=== PATIENT | male | born 1985 | race African-American/Black ===

== ENCOUNTER 2020-11-19 15:02 | Emergency (ER) | payer OTHER, SELFPAY ==
[2020-11-19 15:10] VITALS: BP 127/90; PULSE 71; RESP 17; TEMP 36.4; O2SAT 100
[2020-11-19] MEDS: IBUPROFEN 600 MG TABLET PO (16:16)
[2020-11-19] MEDS: traMADol HCL (*CRX) 50 MG TABLET PO (16:16)
[2020-11-19] MEDS: AMOXICILLIN/CLAVULANATE K 875-125 MG TAB 1 TABLET PO (16:16)
--- NOTE | 2020-11-19 16:22 | ED.DENTAL ---
HPI - Dental/Oral General Chief complaint: Dental/Oral Stated complaint: teeth problems Time Seen by Provider: 11/19/20 15:19 Source: patient and RN notes reviewed Mode of arrival: ambulatory Limitations: no limitations History of Present Illness HPI Narrative: This is a 35 year old male who presents for evaluation of right lower dental pain. He reports he developed pain 2-3 days. PAin is worse with eating. He also notes gum swelling but denies drainage. He has been taking aleve for his pain. Denies difficulty breathing. Related Data Allergies Allergy/AdvReac Type Severity Reaction Status Date / Time No Known Allergies Allergy Verified 11/19/20 15:18 Review of Systems Review of Systems: All systems reviewed & are unremarkable except as noted in HPI and below Constitutional: Constitutional: Denies chills and Denies fever(s) ENT: Denies dysphagia and Denies nasal congestion PMFSH Past Medical History Medical History (Updated 11/19/20 @ 16:30 by Mary Nation MD) Patient denies medical problems Surgical History Surgical History (Updated 11/19/20 @ 16:26 by Mary Nation MD) No pertinent past surgical history Social History Social History (Updated 11/19/20 @ 16:26 by Mary Ntaion MD) Smoking status: Never smoker Exam Const: General: no acute distress and alert Orientation/consciousness: patient oriented x3 HENMT: Mouth: Yes lip normal and Yes moist mucous membranes Teeth and gingiva: abnormal tooth and associated gingiva (#30 with TTP, broken teeth at 30,31) Throat: posterior oropharynx normal Eyes: EOM: EOMs intact bilaterally Resp: Effort & Inspection: normal respiratory effort Course Reevaluation(s) Reevaluation #1: I Discussed with patient discharge plan with antibiotics. He states he will see dentist on Saturday. Date: 11/19/20 Time: 16:27 Vital Signs Vital signs: Vital Signs Temperature 97.5 F L 11/19/20 15:10 Pulse Rate 71 11/19/20 15:10 Respiratory Rate 11/19/20 15:10 Blood Pressure 127/90 11/19/20 15:10 Pulse Oximetry 100 11/19/20 15:10 Temperature 97.5 F L 11/19/20 15:10 Pulse Rate 71 11/19/20 15:10 Respiratory Rate 17 11/19/20 15:10 Blood Pressure 127/90 11/19/20 15:10 Pulse Oximetry 100 11/19/20 15:10 Discharge Plan Discharge Clinical Impression: Dental abscess Patient Disposition: Home, Self-Care Condition: Stable Instructions: Antibiotic Form, Dental Abscess (ED) Additional Instructions: Take antibiotics as prescribed. Return to ER if you develop tongue swelling, difficulty opening your mouth or swallowing. Follow up with your dentist on Saturday [facility] [place] michelle [phone] Prescriptions: New amoxicillin-pot clavulanate [Augmentin] 875-125 mg tablet 1 tablet PO Q12H Qty: 20 RF: 0 ibuprofen 600 mg tablet 600 mg PO Q6H PRN (Reason: pain) Qty: 14 RF: 0 Follow-up/Referrals: PHYSICIAN,DRUG ABUSE TECHNICIAN [Primary Care Provider] - Ankit Deshpande MD [Physician] -
== END 2020-11-19 16:45 | disposition home or self-care (01) ==
PROVIDERS: Emergency Provider General Practice
DX: K04.7 Periapical abscess without sinus (principal)
CPT/HCPCS: 99283; A9270